=== PATIENT | male | born 1985 | race African-American/Black ===

== ENCOUNTER 2016-10-03 11:51 | Emergency (ER) | payer MEDICAID, OTHER ==
[~2016-10-03] VITALS: Ht 180.3 cm; Wt 95.0 kg
[~2016-10-03 11:51] MED LIST: ALBUTEROL
[2016-10-03 11:53] VITALS: BP 128/81
[2016-10-03] MEDS ORDERED: LORAZEPAM 2MG/ML CPJ IV STA (12:14)
[2016-10-03] MEDS ORDERED: LORAZEPAM 2MG/ML CPJ IM ONE (12:45)
[2016-10-03 12:55] LABS: BASOPHILS % 1.2 % (0.0-2.0); EOSINOPHILS % 3.1 % (0.0-5.0); HEMATOCRIT. 44.2 % (42.0-52.0); HEMOGLOBIN. 14.9 g/dL (14.0-18.0); LYMPHOCYTES % 57.6 % (20.0-50.0); MEAN CORPUSCULAR HEMOGLOBIN 30.8 pg (28.0-32.0); MEAN CORPUSCULAR VOLUME 91.3 fL (80.0-94.0); MONOCYTES % 9.6 % (2.0-8.0); NEUTROPHILS % 28.5 % (40.0-76.0); PLATELET 305 x1000/uL (130-400); RED BLOOD CELL COUNT 4.84 mill/uL (4.7-6.1); RED CELL DISTRIBUTION WIDTH 12.9 % (11.6-14.6)
[2016-10-03 13:02] LABS: INR 1.1; PROTHROMBIN TIME 11.5 sec
[2016-10-03 13:07] LABS: CARBON DIOXIDE 26 mEq/L (21-32); CHLORIDE 106 mEq/L (98-107); ETHANOL BLOOD < 10 mg/dL
== END 2016-10-03 16:51 | disposition home or self-care (01) ==
LOC: ER 12:01
DX: T39.1X2A Poisoning by 4-Aminophenol derivatives, intentional self-harm, initial encounter (principal); T42.4X2A Poisoning by benzodiazepines, intentional self-harm, initial encounter; J45.909 Unspecified asthma, uncomplicated
CPT/HCPCS: 36415; 80053; 80307; 80329; 85025; 85610; 99284; G0482; J2060